=== PATIENT | male | born 1950 | race Caucasian/White ===

== ENCOUNTER 2016-07-30 11:12 | Day surgery (SDC) | payer OTHER ==
--- NOTE | ~2016-07-30 | EGD ---
EGD REPORT [facility] [address] [place] [address] NAME: AYAAN AGARWAL : [birth year] STATUS : REG [facility] [place] PAT#: [id number] AGE: 65 ADM/REG DATE : 07/30/16 MR#: [id number] REPORT SERV DATE: 07/30/16 DICTATED BY: JAGDISH RENNER DATE: 07/30/16 REPORT STATUS : Draft TRANSCRIBED BY: [facility] DATE: 07/30/16 Endoscopy Center Patient Name: Ayaan Agarwal Date of : 1950 Attending MD: JAGDISH RENNER MD Procedure Date No Time: 07/30/2016 Procedure: Upper GI endoscopy Indications: Heartburn, Nausea with vomiting, Remote history of GBX Referring MD: Dagmar Harrison Medicines: Propofol per Anesthesia Complications: No immediate complications. Estimated blood loss: None. Procedure: Pre-Anesthesia Assessment: - After reviewing the risks and benefits, the patient was deemed in satisfactory condition to undergo the procedure. - Prior to the procedure, a History and Physical was performed, and patient medications and allergies were reviewed. The patient's tolerance of previous anesthesia was also reviewed. The risks and benefits of the procedure and the sedation options and risks were discussed with the patient. All questions were answered, and informed consent was obtained. Prior Anticoagulants: The patient has taken no previous anticoagulant or antiplatelet agents. ASA Grade Assessment: III - A patient with severe systemic disease. After reviewing the risks and benefits, the patient was deemed in satisfactory condition to undergo the procedure. After obtaining informed consent, the endoscope was passed under direct vision. Throughout the procedure, the patient's blood pressure, pulse, and oxygen saturations were monitored continuously. The GIF [id number] was introduced through the mouth, and advanced to the jejunum. The upper GI endoscopy was accomplished without difficulty. The patient tolerated the procedure well. Findings: The examined esophagus was normal. The entire examined stomach and gastroesophageal junction (on retroflexion) were normal although a large amount of bile was suctioned from the body of the stomach.. The examined duodenum was normal. Biopsies were taken with a cold forceps for histology. Estimated blood loss: none. Impression: - Normal esophagus. EGD REPORT [address] [address] NAME: AYAAN AGARWAL : [birth year] STATUS : REG [facility] [place] PAT#: [id number] AGE: 65 ADM/REG DATE : 07/30/16 MR#: [id number] REPORT SERV DATE: 07/30/16 DICTATED BY: JAGDISH RENNER DATE: 07/30/16 REPORT STATUS : Draft TRANSCRIBED BY: [email or web address] DATE: 07/30/16 - Normal stomach and gastroesophageal junction. - Normal examined duodenum. Biopsied. - GERD. - Bile-reflux S/P GBX. Recommendation: - Discharge patient to home (ambulatory). - Return to previous diet. - Stop smoking. - Continue present medications. - Increase Prilosec (omeprazole) to 40 mg daily before meal. - Go ahead with gastric emptying scan as scheduled. - Await pathology results. - Perform a colonoscopy today. - Patient has a contact number available for emergencies. The signs and symptoms of potential delayed complications were discussed with the patient. Return to normal activities tomorrow. Written discharge instructions were provided to the patient. Procedure Code(s): --- Professional --- 48161, Esophagogastroduodenoscopy, flexible, transoral; with biopsy, single or multiple Diagnosis Code(s): --- Professional --- K21.9, Gastro-esophageal reflux disease without esophagitis R12, Heartburn R11.2, Nausea with vomiting, unspecified CPT copyright 2013 [employer]. All rights reserved. The codes documented in this report are preliminary and upon land surveyor assistant review may be revised to meet current compliance requirements. JAGDISH RENNER MD 07/30/2016 1:47 PM This report has been signed electronically. Number of Addenda: 0 Note Initiated On: 07/30/2016 12:56 PM Scope Withdrawal Time 0 hours 0 minutes 0 seconds [address] [place] [address]
--- NOTE | ~2016-07-30 | EGD ---
EGD REPORT [facility] [address] [place] [address] NAME: AYAAN AGARWAL : [birth year] STATUS : [place] [facility] [place] PAT#: [id number] AGE: 65 ADM/REG DATE : 07/30/16 MR#: [id number] REPORT SERV DATE: 07/30/16 DICTATED BY: JAGDISH RENNER DATE: 07/30/16 REPORT STATUS : Draft TRANSCRIBED BY: [facility] DATE: 07/30/16 Endoscopy Center Patient Name: Ayaan Agarwal Date of : 1950 Attending MD: JAGDISH RENNER MD Procedure Date No Time: 07/30/2016 Procedure: Colonoscopy Indications: Screening for colorectal malignant neoplasm, Incidental constipation noted, Incidental diarrhea noted Referring MD: Dagmar Harrison Medicines: Propofol per Anesthesia Complications: No immediate complications. Estimated blood loss: None. Procedure: Pre-Anesthesia Assessment: - After reviewing the risks and benefits, the patient was deemed in satisfactory condition to undergo the procedure. - Prior to the procedure, a History and Physical was performed, and patient medications and allergies were reviewed. The patient's tolerance of previous anesthesia was also reviewed. The risks and benefits of the procedure and the sedation options and risks were discussed with the patient. All questions were answered, and informed consent was obtained. Prior Anticoagulants: The patient has taken no previous anticoagulant or antiplatelet agents. ASA Grade Assessment: III - A patient with severe systemic disease. After reviewing the risks and benefits, the patient was deemed in satisfactory condition to undergo the procedure. After I obtained informed consent, the scope was passed under direct vision. Throughout the procedure, the patient's blood pressure, pulse, and oxygen saturations were monitored continuously. The CF [id number] was introduced through the anus and advanced to the cecum, identified by appendiceal orifice and ileocecal valve. The colonoscopy was performed with difficulty due to poor bowel prep. Successful completion of the procedure was aided by lavage. The appendiceal orifice was photographed. The patient tolerated the procedure well. The quality of the bowel preparation was poor. The bowel preparation used was polyethylene glycol (PEG). Scope withdrawal time was greater than 6 minutes. Findings: The perianal and digital rectal examinations were normal. Pertinent negatives include normal sphincter tone. EGD REPORT [address] [address] NAME: AYAAN AGARWAL : [birth year] STATUS : [place] [facility] [place] PAT#: [id number] AGE: 65 ADM/REG DATE : 07/30/16 MR#: [id number] REPORT SERV DATE: 07/30/16 DICTATED BY: JAGDISH RENNER DATE: 07/30/16 REPORT STATUS : Draft TRANSCRIBED BY: [employer] DATE: 07/30/16 Multiple small-mouthed diverticula were found in the sigmoid colon. A sessile polyp was found in the cecum. The polyp was 6 mm in size. The polyp was removed with a hot snare. Resection and retrieval were complete. Estimated blood loss: none. The exam was otherwise without abnormality. Impression: - Preparation of the colon was poor. - Moderate diverticulosis in the sigmoid colon. - One 6 mm polyp in the cecum. Resected and retrieved. - The examination was otherwise normal. - IBS-C with Opioid-Induced Constipation. Recommendation: - Discharge patient to home (ambulatory). - Return to previous diet. - Continue present medications. - Increase Linzess to 290 mcg daily. - Await pathology results. - Follow-up in the office in 2-3 weeks. - Repeat colonoscopy in 1 year because the bowel preparation was poor and for surveillance. - Patient has a contact number available for emergencies. The signs and symptoms of potential delayed complications were discussed with the patient. Return to normal activities tomorrow. Written discharge instructions were provided to the patient. Procedure Code(s): --- Professional --- 01201, Colonoscopy, flexible, proximal to splenic flexure; with removal of tumor(s), polyp(s), or other lesion(s) by snare technique Diagnosis Code(s): --- Professional --- K57.30, Diverticulosis of large intestine without perforation or abscess without bleeding D12.0, Benign neoplasm of cecum Z12.11, Encounter for screening for malignant neoplasm of colon CPT copyright 2013 [employer]. All rights reserved. The codes documented in this report are preliminary and upon interpreter for the deaf review may be revised to meet current compliance requirements. JAGDISH RENNER MD 07/30/2016 2:16 PM EGD REPORT [facility] [address] [facility] [place] [address] NAME: AYAAN AGARWAL : [birth year] STATUS : REG [facility] [place] PAT#: [id number] AGE: 65 ADM/REG DATE : 07/30/16 MR#: [id number] REPORT SERV DATE: 07/30/16 DICTATED BY: JAGDISH RENNER. DATE: 07/30/16 REPORT STATUS : Draft TRANSCRIBED BY: [employer] DATE: 07/30/16 This report has been signed electronically. Number of Addenda: 0 Note Initiated On: 07/30/2016 12:52 PM Scope Withdrawal Time 0 hours 6 minutes 49 seconds [address] [place] [address]
[~2016-07-30 11:12] MED LIST: BENICAR/HCTZ; EFFEX37.5 PO; FLEXERIL5 MG PO; LINZESS 145 M145 MCG PO; MSCONT15 PO; NORCO1 TAB PO; NORV5 PO; PRILOSEC40 MG PO; SINGULAIR1 PO
[2017-02-19] MEDS ORDERED: NORV5 PO (21:08)
[2017-02-19] MEDS ORDERED: NORCO1 TAB PO (21:09)
[2017-02-19] MEDS ORDERED: SINGULAIR1 PO (21:10)
[2017-02-19] MEDS ORDERED: PRILOSEC40 MG PO (21:10)
[2017-02-19] MEDS ORDERED: MSCONT15 PO (21:10)
[2017-02-19] MEDS ORDERED: BENICAR HCT1 TA2 PO (21:11)
[2017-02-19] MEDS ORDERED: PREV30 PO (21:12)
[2017-02-19] MEDS ORDERED: EFFEX37.5 PO (21:12)
[2017-02-19] MEDS ORDERED: FLEXERIL5 MG PO (21:13)
[2017-02-19] MEDS ORDERED: [UNRECOGNIZED DRUG - OTHER] PO (21:14)
== END 2016-07-30 23:59 | disposition home or self-care (01) ==
LOC: DMU 11:12
PROVIDERS: Internal Medicine Gastroenterology
PROC: 0DBH8ZZ Excision of Cecum, Via Natural or Artificial Opening Endoscopic (ICD-10-PCS; principal; 2016-07-30 12:30)
PROC: 0DBN8ZX Excision of Sigmoid Colon, Via Natural or Artificial Opening Endoscopic, Diagnostic (ICD-10-PCS; 2016-07-30 12:30)
PROC: 0DB98ZX Excision of Duodenum, Via Natural or Artificial Opening Endoscopic, Diagnostic (ICD-10-PCS; 2016-07-30 12:30)
DX: Z12.11 Encounter for screening for malignant neoplasm of colon (principal); D12.0 Benign neoplasm of cecum; K57.30 Diverticulosis of large intestine without perforation or abscess without bleeding; K58.1 Irritable bowel syndrome with constipation; K21.0 Gastro-esophageal reflux disease with esophagitis; I10 Essential (primary) hypertension; E78.00 Pure hypercholesterolemia, unspecified; G89.29 Other chronic pain; M54.9 Dorsalgia, unspecified; H91.90 Unspecified hearing loss, unspecified ear; F17.210 Nicotine dependence, cigarettes, uncomplicated; Z79.891 Long term (current) use of opiate analgesic; Z79.899 Other long term (current) drug therapy; Z98.890 Other specified postprocedural states; Z87.81 Personal history of (healed) traumatic fracture; Z90.49 Acquired absence of other specified parts of digestive tract
CPT/HCPCS: 88305